=== PATIENT | female | born 1955 | race Caucasian/White ===

== ENCOUNTER 2016-10-15 07:51 | Inpatient (IN) | payer BC ==
[2016-10-04 12:45] LABS: ASCORBIC ACID (UR NOT ORDER) NEG (NEG); BILIRUBIN, URINE NEGATIVE (NEG); KETONE, URINE NEGATIVE (NEG); LEUKOCYTE ESTERASE(NOT OR NEG (NEG); WBC (NOT ORDERED) (RFLEX) < 1 (0-5)
[2016-10-04 12:48] LABS: BASOPHILS 0.1 %; BASOPHILS ABSOLUTE 0.01 10/3/uL (0.0-0.16); EOSINOPHILS 2.4 %; EOSINOPHILS ABSOLUTE 0.22 10/3/uL (0.0-0.53); HEMATOCRIT 33.2 % (36.0-48.0); HEMOGLOBIN 10.9 g/dL (12.0-16.0); IMMATURE GRANULOCYTES 0.4 %; IMMATURE GRANULOCYTES ABSOLUTE 0.04 10/3/uL (0.0-0.11); LYMPHOCYTES 21.1 %; LYMPHOCYTES ABSOLUTE 1.95 10/3/uL (0.67-4.30); MEAN CORPUS HGB CONC 32.8 g/dL (32.0-36.0); MEAN CORPUSCULAR HEMOGLOB 30.4 pg (26.0-34.0); MEAN CORPUSCULAR VOLUME 92.5 fL (80-100); MEAN PLATELET VOLUME 9.3 fL (9.2-13.0); MONOCYTES 7.2 %; MONOCYTES ABSOLUTE 0.67 10/3/uL (0.21-1.20); NEUTROPHILS 68.8 %; NEUTROPHILS ABSOLUTE 6.37 10/3/uL (2.02-8.40); PLATELET COUNT 344 10/3/uL (150-400); RED CELL COUNT 3.59 10/6/uL (4.0-5.6); WHITE BLOOD CELLS 9.3 10/3/uL (4.5-10.5)
[2016-10-04 12:52] LABS: MANUAL DIFF NO %
[2016-10-04 12:53] LABS: PARTIAL THROMBO TIME 25.2 SEC (22.5-37.2); PROTIME (NOT ORD) 12.6 SEC (12.0-14.5)
[2016-10-04 13:01] LABS: ALBUMIN 3.7 G/DL (3.5-5.0); ALKALINE PHOSPHATASE 114 U/L (45-117); BUN (BLOOD UREA NITROGEN) 30 MG/DL (6-23); CALCIUM, SERUM 9.6 MG/DL (8.5-10.4); CHLORIDE, SERUM 105 MMOL/L (96-112); CO2 (CARBON DIOXIDE) 26 MMOL/L (24-34); CREATININE 1.49 MG/DL (0.55-1.02); GFR AFRICAN AMERICAN 43 ML/MIN (>=60); GFR NON AFRICAN AMERICAN 37 ML/MIN (>=60); GLOBULIN 3.8 G/DL (2.5-4.1); GLUCOSE, SERUM 123 MG/DL (60-99); POTASSIUM, SERUM 4.6 MMOL/L (3.5-5.3); SGOT(AST) 27 U/L (5-40); SGPT(ALT) 36 U/L (5-65); SODIUM, SERUM 140 MMOL/L (135-148); TOTAL BILIRUBIN 0.4 MG/DL (0-1.2); TOTAL PROTEIN 7.5 G/DL (6.0-8.5)
--- NOTE | ~2016-10-15 | DS ---
Discharge Summary [place] [id number] [place]. [address] NAME: ALVARO BETH : 53 STATUS : DIS IN PAT#: [id number] AGE: 61 ADM/REG DATE : 10/15/16 MR#: [id number] REPORT SERV DATE: 10/24/16 DICTATED BY: IRIS STOKES DATE: 10/23/16 REPORT STATUS : Draft TRANSCRIBED BY: ROSALVA DATE: 10/23/16 Data Collection from hospitalization DISCHARGE DIAGNOSES: 1. Left knee arthritis. 2. Hypertension. 3. Asthma. 4. Obstructive sleep apnea. 5. Obesity. 6. Hzs-[id number]-yzajwlljc diabetes mellitus. CONSULTATIONS: None. PROCEDURES PERFORMED: Left total knee arthroplasty 10/15/2016. PATHOLOGY: Bone and tissue; left knee joint degenerative osteoarthritis with chronic synovitis. MEDICATIONS: Aspirin 81 mg daily, Lipitor 20 mg at bedtime, Caltrate 600 mg daily, vitamin D3 2000 units daily, Colace 100 mg twice daily, Pepcid 20 mg twice daily, ferrous sulfate 300 mg with breakfast and supper, Flonase one spray each nostril daily, Neurontin 300 mg daily, Xalatan one drop each eye at bedtime, levothyroxine sodium 137 mcg daily, Josselin 180 mg daily, Mag-Ox 400 mg three times a week on Friday, Friday, and Friday, Singulair 10 mg daily, Xolair 150 mg subcutaneously x4 weeks, Theragran tablet without minerals one with breakfast, hematinic one daily, Lopressor 12.5 mg twice daily, Coumadin as directed, Proventil every 4 hours while awake, Dulera two puffs twice daily, Tylenol 650 mg every four hours as needed, Mylanta 30 mL as needed, Xanax 1 mg every 6 hours as needed, Dulcolax 15 mg orally as needed, Glucophage 1000 mg twice daily, milk of magnesia 30 mL as needed, Zofran 4 mg every four hours as needed, MiraLAX powder one packet twice daily as needed, Roxicodone 5 10 mg every four hours as needed, Breo Ellipta one puff daily, Byetta 10 mcg twice daily, Micardis one daily, s-adenosylmethionine 200 mg daily, sodium bicarbonate 650 mg daily, tryptophan 1000 mg daily, Inositol 650 mg daily, Lasix 40 mg daily, Klor-Con 10 mEq daily, L Methylfolate 15 mg daily. CONDITION AT DISCHARGE: Stable. DISPOSITION: She was discharged with transfer to [facility] to continue an 1800- calorie ADA diet with activity as discussed. She was to continue with her CPAP from home at night as directed. She was to follow up with me in the office on 10/30/2016 and again on 11/27/2016. HOSPITAL COURSE: This patient had been seen in the office with bilateral knee pain. She stated that she had pain in her knees for a while and then had gradually gotten worse. She stated that she was now having trouble even walking through a grocery store. She stated that she was able to walk about 10 minutes before stopping to rest due to knee pain. She stated that she had also had increased pain with stairs, taking them one at a time. She previously had cortisone injections with only minimal relief. Surgery had been discussed with the patient. She was agreeable to proceed. She was admitted for this and further Discharge Summary [address] [address] NAME: ALVARO BETH : 53 STATUS : DIS IN PAT#: [id number] AGE: 61 ADM/REG DATE : 10/15/16 MR#: [id number] REPORT SERV DATE: 10/24/16 DICTATED BY: IRIS STOKES DATE: 10/23/16 REPORT STATUS : Draft TRANSCRIBED BY: ROSALVA DATE: 10/23/16 treatment. Upon admission to the hospital, she had been taken to the operating room where she did undergo the above left total knee arthroplasty. She had tolerated this well and was transferred to the recovery room. On postop day #1, she did appear to be doing well, and she had been evaluated by Occupational and Physical Therapy. She did appear to be very anxious and had been up to the bedside commode and had a panic attack and had complaints of shortness of breath. She was afebrile, and her vital signs were stable. When she had the panic attack, she did not have her rescue inhaler with her. On postop day #2, she was still very anxious and emotional and had complaints of pain. She was still short of breath on exertion. Her hemoglobin was at 8.5, hematocrit 25.1, and INR 1.4. She was encouraged to ambulate with Physical Therapy. She had been placed on albuterol and Dulera. It was felt that she would need inpatient rehabilitation. On postop day #3, she was felt to be doing much better, and her pain was under better control. Her breathing was noted to have improved as well. She did continue to do well and was then discharged with the above instructions. Information collected by: Dalia Anton. I submit the above information as my discharge summary. KAYLEIGH/ROSALVA Iris Stokes M.D. / [id number] CC: Albertina Lopez M.D. [facility]
--- NOTE | ~2016-10-15 | OP ---
Record Of Operation [facility] [address] [place]. [address] NAME: ALVARO BETH : 53 STATUS : ADM IN PAT#: [id number] AGE: 61 ADM/REG DATE : 10/15/16 MR#: [id number] REPORT SERV DATE: 10/15/16 DICTATED BY: IRIS STOKES DATE: 10/15/16 REPORT STATUS : Draft TRANSCRIBED BY: MODL DATE: 10/15/16 DATE OF PROCEDURE: 10/15/2016 POSTOPERATIVE DIAGNOSIS: Left knee arthritis. POSTPROCEDURE DIAGNOSIS: Left knee arthritis. PROCEDURE PERFORMED: Left total knee arthroplasty. SURGEON: Iris Stokes M.D. [employer] ADJUSTER: Jyotsna Griffin. ANESTHESIA: General with adductor block and local infusion. PROCEDURE IN DETAIL: The patient is clearly identified and after obtaining informed consent is brought to the operating room at [facility] where anesthesia is induced uneventfully with excellent anesthetic effect. Subsequently, the affected extremity is prepped and draped in the usual manner and after an appropriate time-out procedure is performed, via an anterior approach, the skin is divided, fascial planes are elevated, paramedial approach to the knee is made. The structures themselves are elevated, excised, and debrided were appropriate, whereupon the patella is carefully everted, calipered, and planed and with the size and type being reproduced with the appropriate-size patella, trialing is performed successfully. At this point, the patella is then carefully subluxed laterally, the knee is flexed, osteophytes around the distal femur are removed, followed by the ACL being divided. The femoral canal is entered and vented, at which point with the intramedullary guide being utilized, the distal femoral cut is made. At this point, the tibia is carefully subluxed anteriorly. The surrounding soft tissues to the tibia are protected with Hohmann retractors, at which point the extramedullary guide is utilized to perform the proximal tibial cut and after cleansing these tissues, the spacer block is utilized in extension to confirm excellent extension, stability, and alignment. The guiding pins are then all carefully removed and the knee is then flexed. The femur is sized, whereupon the anterior, posterior, chamfer, and box cuts are made appropriately. The proximal tibia then is assessed. Osteophytes and surrounding soft tissues are removed and debrided were appropriate. Posterior osteophytes are removed as well. The menisci are excised and thus concluding trialings performed successfully. The proximal tibia then is carefully prepared utilizing proper cement technique. The permanent implants have been carefully placed into position uneventfully where upon copious irrigations performed, the permanent tibial implants applied and thus concluded. The joint was then copiously irrigated, at which point it is closed carefully in layers including Vicryl and kamla for the skin, at which point Aquacel sterile dressing is applied. The patient is allowed to awaken and is transferred to the bed and subsequently to the recovery room in stable condition having tolerated the procedure well. ESTIMATED BLOOD LOSS: 100. Record Of Operation [facility] [address] [facility] [place]. [address] NAME: ALVARO BETH : 53 STATUS : ADM IN [facility]#: [id number] AGE: 61 ADM/REG DATE : 10/15/16 MR#: [id number] REPORT SERV DATE: 10/15/16 DICTATED BY: IRIS STOKES DATE: 10/15/16 REPORT STATUS : Draft TRANSCRIBED BY: ROSALVA DATE: 10/15/16 FLUIDS: 1600. TOURNIQUET TIME: 44 minutes. PATHOLOGY: Sent specimen. MICROBIOLOGY: None. COMPLICATIONS: None. SPONGE AND NEEDLE COUNTS: Reportedly correct. ANTIBIOTICS: Administered appropriately preoperatively and ordered to be discontinued within 23 hours. IMPLANTS: Attune knee by DePuy, femur 5 narrow, tibia 4, patella 38, polyethylene /. INNA/ROSALVA Iris Stokes M.D. / [id number] CC: Albertina Lopez M.D.
[~2016-10-15 07:51] MED LIST: ALLEGRA180 PO; ASAB PO; BREO ELLIPTA INH; BYETTA10 SC; CALTRA600D PO; DEPLIN-ALGAL O1 EAC1 PO; FISH OIL1200 MG; FLONASE NAS; GLUCPH PO; HEMATINIC/FA PO; INOSITOL PO; KLOR-CON M1010 MEQ PO; L40 PO; LEVOTHYROXIN137 MCG PO; LIPITOR20; LIPITOR20 PO; LOP25 PO; MAGOX4 PO; MICARDIS HCT PO; MOBIC7.5 PO; NEUR300 PO; PURE PO; SINGULAIR1 PO; SODBICAR10 PO; TRYPTOPHAN 500 MG; VITAMIN D31000 UNIT PO; XALAT OPH; XOLAIR SC; [UNRECOGNIZED DRUG - OTHER] PO; [UNRECOGNIZED DRUG - OTHER] PO; [UNRECOGNIZED DRUG - OTHER] PO
[2016-10-16 04:31] LABS: HEMATOCRIT 26.6 % (36.0-48.0); HEMOGLOBIN 8.7 g/dL (12.0-16.0)
[2016-10-16 04:38] LABS: INTERNATIONAL NORMAL RATI 1.1 UNITS (-); PROTIME (NOT ORD) 14.3 SEC (12.0-14.5)
[2016-10-16 04:45] LABS: BUN (BLOOD UREA NITROGEN) 23 MG/DL (6-23); CALCIUM, SERUM 8.2 MG/DL (8.5-10.4); CHLORIDE, SERUM 105 MMOL/L (96-112); CO2 (CARBON DIOXIDE) 26 MMOL/L (24-34); CREATININE 1.29 MG/DL (0.55-1.02); GFR AFRICAN AMERICAN 51 ML/MIN (>=60); GFR NON AFRICAN AMERICAN 44 ML/MIN (>=60); GLUCOSE, SERUM 191 MG/DL (60-99); POTASSIUM, SERUM 4.3 MMOL/L (3.5-5.3); SODIUM, SERUM 139 MMOL/L (135-148)
[2016-10-17 05:51] LABS: HEMATOCRIT 25.1 % (36.0-48.0); HEMOGLOBIN 8.5 g/dL (12.0-16.0); MEAN CORPUS HGB CONC 33.9 g/dL (32.0-36.0); MEAN CORPUSCULAR HEMOGLOB 31.1 pg (26.0-34.0); MEAN CORPUSCULAR VOLUME 91.9 fL (80-100); MEAN PLATELET VOLUME 9.4 fL (9.2-13.0); PLATELET COUNT 269 10/3/uL (150-400); RBC DISTRIBUTION WIDTH 13.7 % (12.0-16.0); WHITE BLOOD CELLS 7.9 10/3/uL (4.5-10.5)
[2016-10-17 05:54] LABS: MANUAL DIFF YES %; RED CELL COUNT 2.73 10/6/uL (4.0-5.6)
[2016-10-17 06:04] LABS: CHLORIDE, SERUM 105 MMOL/L (96-112); CO2 (CARBON DIOXIDE) 27 MMOL/L (24-34); CREATININE 1.22 MG/DL (0.55-1.02); GFR AFRICAN AMERICAN 55 ML/MIN (>=60); GFR NON AFRICAN AMERICAN 47 ML/MIN (>=60); GLUCOSE, SERUM 179 MG/DL (60-99); POTASSIUM, SERUM 4.5 MMOL/L (3.5-5.3); SODIUM, SERUM 137 MMOL/L (135-148)
[2016-10-17 06:07] LABS: BUN (BLOOD UREA NITROGEN) 17 MG/DL (6-23)
[2016-10-17 06:13] LABS: INTERNATIONAL NORMAL RATI 1.4 UNITS (-)
[2016-10-17 06:14] LABS: PROTIME (NOT ORD) 16.9 SEC (12.0-14.5)
[2016-10-17 06:39] LABS: BAND NEUTROPHILS 1 %; IMMATURE GRANS ABSOLUTE (CALC) 0.08 10/3/uL (0.0-0.11); LYMPHOCYTES 20 %; LYMPHOCYTES ABSOLUTE (CALC) 1.58 10/3/uL (0.67-4.30); METAMYELOCYTES 1 %; MONOCYTES 5 %; NEUTROPHILS ABSOLUTE (CALC) 5.85 10/3/uL (2.02-8.40); SEGMENTED NEUTROPHIL (0) 73 %; TOTAL NUCLEATED CELLS 100
[2016-10-17 06:40] LABS: PLATELET ESTIMATE ADQ (ADEQUATE); RBC MORPHOLOGY NORM (NORMAL)
[2016-10-18 05:34] LABS: BASOPHILS 0.2 %; BASOPHILS ABSOLUTE 0.02 10/3/uL (0.0-0.16); EOSINOPHILS 2.5 %; EOSINOPHILS ABSOLUTE 0.21 10/3/uL (0.0-0.53); HEMATOCRIT 24.7 % (36.0-48.0); HEMOGLOBIN 8.1 g/dL (12.0-16.0); IMMATURE GRANULOCYTES 0.4 %; IMMATURE GRANULOCYTES ABSOLUTE 0.03 10/3/uL (0.0-0.11); LYMPHOCYTES 19.3 %; MEAN CORPUS HGB CONC 32.8 g/dL (32.0-36.0); MEAN CORPUSCULAR HEMOGLOB 30.5 pg (26.0-34.0); MEAN CORPUSCULAR VOLUME 92.9 fL (80-100); MEAN PLATELET VOLUME 9.3 fL (9.2-13.0); MONOCYTES 12.9 %; MONOCYTES ABSOLUTE 1.07 10/3/uL (0.21-1.20); NEUTROPHILS 64.7 %; NEUTROPHILS ABSOLUTE 5.37 10/3/uL (2.02-8.40); PLATELET COUNT 254 10/3/uL (150-400); RBC DISTRIBUTION WIDTH 13.7 % (12.0-16.0); RED CELL COUNT 2.66 10/6/uL (4.0-5.6); WHITE BLOOD CELLS 8.3 10/3/uL (4.5-10.5)
[2016-10-18 05:43] LABS: MANUAL DIFF NO %
[2016-10-18 05:46] LABS: BUN (BLOOD UREA NITROGEN) 16 MG/DL (6-23); CALCIUM, SERUM 8.8 MG/DL (8.5-10.4); CHLORIDE, SERUM 105 MMOL/L (96-112); CO2 (CARBON DIOXIDE) 26 MMOL/L (24-34); GFR AFRICAN AMERICAN 51 ML/MIN (>=60); GFR NON AFRICAN AMERICAN 44 ML/MIN (>=60); GLUCOSE, SERUM 153 MG/DL (60-99); POTASSIUM, SERUM 4.9 MMOL/L (3.5-5.3); SODIUM, SERUM 137 MMOL/L (135-148)
[2016-10-18 07:21] LABS: INTERNATIONAL NORMAL RATI 1.5 UNITS (-); PROTIME (NOT ORD) 18.2 SEC (12.0-14.5)
== END 2016-10-18 17:02 | DRG 470 ==
LOC: SDC/OF 07:51 → PACU 13:02 → 3JRC 14:37
PROVIDERS: Nurse Practitioner; Orthopaedic Surgery
PROC: 0SRD0J9 Replacement of Left Knee Joint with Synthetic Substitute, Cemented, Open Approach (ICD-10-PCS; principal; 2016-10-15 09:30)
DX: M17.12 Unilateral primary osteoarthritis, left knee (principal); N17.9 Acute kidney failure, unspecified; E11.22 Type 2 diabetes mellitus with diabetic chronic kidney disease; E11.40 Type 2 diabetes mellitus with diabetic neuropathy, unspecified; D62 Acute posthemorrhagic anemia; I12.9 Hypertensive chronic kidney disease with stage 1 through stage 4 chronic kidney disease, or unspecified chronic kidney disease; N18.9 Chronic kidney disease, unspecified; E78.5 Hyperlipidemia, unspecified; G47.33 Obstructive sleep apnea (adult) (pediatric); E03.9 Hypothyroidism, unspecified; J45.909 Unspecified asthma, uncomplicated
CPT/HCPCS: 36415; 71020; 80048; 80053; 81001; 82962; 85014; 85018; 85025; 85610; 85730; 86850; 86900; 86901; 87641; 88305; 88311; 93005; 94640; 97110-GP; 97116-GP; 97150-GP; 97162-GP; 97166-GO; 97535-GO; A9270-GY; C1776; J0690; J1885; J2250; J2274; J2370; J2405; J2795; J3010